=== PATIENT | male | born 1955 ===

== ENCOUNTER 2018-05-18 02:51 | Inpatient (IN) | payer OTHER ==
[~2018-05-18] VITALS: Ht 167.6 cm; Wt 75.5 kg
[2018-05-18] VITALS (10 sets, daily range): BP systolic 101–131; BP diastolic 55–76; PULSE 70–89; TEMP 98.6–99.4
[2018-05-18] MEDS ORDERED: PRILOSEC 20MG20 MG PO (05:20)
[2018-05-18] MEDS ORDERED: PEPTO BISM262 MG/15 PO (05:21)
--- NOTE | 2018-05-18 06:26 | NUR ---
Patient in bed resting. Family at bedside. Alert and oriented x 3. Patient c/o hiccups with occasional dark blood tinged sputum. Denies pain at this time. IV fluids infusing via pump to left AC. Denies further needs at this time. Will report off to day shift.
[2018-05-18 06:44] LABS: BASO % 0.2 % (0.0-2.0); EOS % 0.4 % (0-4.0); GRAN % 71.3 % (42.2-75.2); HEMATOCRIT 33.9 % (42.0-52.0); HEMOGLOBIN 10.7 g/dl (13.5-18.0); LYMPH # 2.2 (1.2-3.4); LYMPH % 19.5 % (20.0-51.0); MEAN CELL VOLUME 92 fl (80.0-100.0); MEAN CORPUSCULAR HEMOGLOBIN 29 pg (27.0-31.0); MEAN CORPUSCULAR HGB CONC 32 g/dl (33.0-37.0); MEAN PLATELET VOLUME 11.3 fl (7.4-10.4); MONO # 0.9 (0.1-0.6); MONO % 8.2 % (1.7-9.3); PLATELET COUNT 182 K/mm3 (130-400); REDCELL DISTRIBUTION WIDTH-CV 13.2 % (11.5-14.5)
[2018-05-18 06:45] LABS: INR 1.1 (0.8-3.0); PROTHROMBIN TIME 12.9 SECONDS (9.7-12.8)
[2018-05-18 07:03] LABS: ALANINE AMINOTRANSFERASE 22 U/L (21-72); ALBUMIN 2.7 gm/dL (3.5-5.0); ALKALINE PHOSPHATASE 37 U/L (50-136); ANION GAP 5 mmol/L (7-16); AST,SGOT 20 U/L (15-37); BILIRUBIN,TOTAL < 0.1 mg/dL (0.0-1.0); BLOOD UREA NITROGEN 24 mg/dL (9-20); C-REACTIVE PROTEIN 1.7 mg/dL (0.0-0.9); CARBON DIOXIDE 25 mmol/L (22-30); CHLORIDE 108 mmol/L (98-107); GLUCOSE 114 mg/dL (74-106); POTASSIUM 3.6 mmol/L (3.4-5.0); SODIUM 137 mmol/L (137-145); TOTAL PROTEIN 5.3 gm/dL (6.4-8.2)
--- NOTE | 2018-05-18 08:40 | NUR ---
assessment complete.patient awake,a/ox4.denies pain or discomfort at this time.denies nausea and vomitting.patient continues to have hiccups.breathing even and unlabored.IVF infusing.patient to have EGD this morning.no concerns voiced at this time.call light in reach
--- NOTE | 2018-05-18 11:00 | NUR ---
pt return to room from Endoscopy.awake,pleasant.post op vitals started.patient stable at this time.will continue to monitor
--- NOTE | 2018-05-18 11:51 | NUR ---
Plan to return home with family and Spouse as care support is Manjinder . Patient reports that he resides on [facility] with his , daughter and son and the grandchildren. Patient shares that he does not use any DME and uses [facility] for medications. No PCP. Patient report shares that he is having some tightness in the chest upper left and pain around 5. Action: Educated patient of services and resources.
[2018-05-18 12:22] LABS: HEMOGLOBIN 10.5 g/dl (13.5-18.0)
[2018-05-18 12:27] LABS: HEMATOCRIT 32.7 % (42.0-52.0)
--- NOTE | 2018-05-18 14:00 | NUR ---
patient resting in room.family at bedside.IVF decreased to 50ml/hr.patient diet advance and meds added and given per orders.pt denies needs at this time.call light in reach
--- NOTE | 2018-05-18 18:03 | NUR ---
pt resting in bed at this time.denies N/V.no bloody stools reported.tolerating food well.denies any needs at this time.call light in reach
--- NOTE | 2018-05-18 23:17 | NUR ---
Completed assessment and medication administration; PT tolerated all cares well; Continues to have c/o epigastric, denies N/V/D during assessment, NS continues to to LAC at 50ml/hr. A&Ox3, BS active x4, LCTA, SBA with IV; PT denies further needs at time of exit, call light placed within reach; Will continue to monitor. CDA
--- NOTE | 2018-05-19 02:59 | NUR ---
PT resting well in bed with NS running at 50ml/hr to LAC. No reported needs at time of visual check. Will continue to monitor. CDA
[2018-05-19 03:10] VITALS: BP 126/67; PULSE 65; TEMP 98.4
--- NOTE | 2018-05-19 07:06 | NUR ---
Report given to MYKEL Hernandez. CDA
[2018-05-19 08:17] VITALS: BP 117/72; PULSE 64; TEMP 98.3
[2018-05-19 11:54] VITALS: BP 112/65; PULSE 62; TEMP 98.4
[2018-05-19] MEDS ORDERED: CARAFATE S1 GM/10 ML PO (12:59)
[2018-05-19] MEDS ORDERED: PROTONIX 40MG T40 MG PO (13:00)
[2018-05-19 13:21] LABS: HEMOGLOBIN 10.9 g/dl (13.5-18.0); MEAN CELL VOLUME 92 fl (80.0-100.0); MEAN CORPUSCULAR HEMOGLOBIN 29 pg (27.0-31.0); MEAN CORPUSCULAR HGB CONC 32 g/dl (33.0-37.0); MEAN PLATELET VOLUME 10.3 fl (7.4-10.4); PLATELET COUNT 202 K/mm3 (130-400); RED BLOOD COUNT 3.71 M/mm3 (4.20-5.60); REDCELL DISTRIBUTION WIDTH-CV 13.4 % (11.5-14.5)
[2018-05-19 13:33] LABS: HEMATOCRIT 34.2 % (42.0-52.0)
[2018-05-19 13:58] LABS: BAND 2 % (0-10); EOSINOPHIL 1 % (0-4); LYMPHOCYTE 26 % (20.0-51.0); NEUTROPHILS 67 % (42.0-75.2); PLATELET ESTIMATE NORMAL (NORMAL); TOXIC GRANULATION PRESENT
--- NOTE | 2018-05-19 17:30 | NUR ---
patient discharge home at this time.all discharge instructions reviewed.iv and tele discontinued.all questions answered.education provided.patient to call for his follow up appoinments.all belongings taken.no needs voiced at this time.Staff escorted patient out
== END 2018-05-19 17:32 | disposition home or self-care (01) | DRG 392 ==
LOC: MEDICAL 02:51
PROVIDERS: Internal Medicine Gastroenterology; Nurse Practitioner; ADMIT Student in an Organized Health Care Education/Training Program
PROC: 0DB38ZX Excision of Lower Esophagus, Via Natural or Artificial Opening Endoscopic, Diagnostic (ICD-10-PCS; principal; 2018-05-18 09:00)
DX: K22.8 Other specified diseases of esophagus (principal); D62 Acute posthemorrhagic anemia; K21.0 Gastro-esophageal reflux disease with esophagitis
CPT/HCPCS: 99223-AI; 99239; C9113; J2704; J7030